=== PATIENT | female | born 1945 | race Caucasian/White ===

== ENCOUNTER 2024-09-29 10:38 | Emergency (ER) | payer MEDICARE ==
[2024-09-29 11:59] LABS: #Basophils Less than 0.03 10x3/uL (0.0-0.2); #Eosinophils 0.05 10x3/uL (0.0-0.5); #Monocytes 0.30 10x3/uL (0.0-1.1); #Neutrophils 5.10 10x3/uL (1.5-8.4); %Basophils 0.3 % (0.0-2.0); %Eosinophils 0.7 % (0.0-6.0); %Lymphocytes 22.2 % (18.0-47.0); %Monocytes 4.2 % (0.0-10.0); %Neutrophils 72.3 % (40.0-75.0); Hematocrit 40.5 % (34.9-44.5); Hemoglobin 13.5 g/dL (12.0-15.5); Mean Corpuscular Hemoglobin 29.4 pg (27.0-33.0); Mean Corpuscular Volume 88.2 fL (81.6-98.3); Platelet Count 197 10x3/uL (150-450); Red Blood Cell (RBC) Count 4.59 10x6/uL (3.90-5.03); White Blood Cell (WBC) Count 7.06 10x3/uL (3.5-10.5)
[2024-09-29 12:23] LABS: ALT (SGPT) 19 U/L (Less than 34); AST (SGOT) 19 U/L (11-34); Albumin 4.3 g/dL (3.1-4.5); Alkaline Phosphatase 46 U/L (40-110); Anion Gap 12 mmol/L (10-20); BUN (Urea Nitrogen) 10 mg/dL (9.8-20.1); Bilirubin, Total 0.6 mg/dL (0.3-1.2); Calc. Creatinine Clearance 0 mL/min (70-130); Calcium 10.2 mg/dL (7.8-10.44); Carbon Dioxide 26 mmol/L (23-31); Chloride 109 mmol/L (98-107); Globulin 2.8 g/dL (2.4-3.5); Glucose 111 mg/dL (83-110); Potassium 4.4 mmol/L (3.5-5.1); Sodium 143 mmol/L (136-145); Troponin I Less than 0.010 ng/mL (< 0.028)
[2024-09-29 12:58] LABS: Glucose, Urine (Dipstick) Normal (Negative); Leukocyte 25 (Negative); Protein, Urine (Dipstick) 15 mg/dl (Neg-Trace); Specific Gravity, Urine 1.010 (1.005-1.030)
[2024-09-29 13:27] LABS: Bacteria/HPF 1+ HPF (None Seen); CAUTI Indications for Culture Pelvic or flank pain; RBC/HPF 0-3 HPF (0-3)
[2024-09-29 13:31] LABS: Urine Culture Reflex No No
== END 2024-09-29 14:30 | disposition home or self-care (01) ==
LOC: CSHERS 10:38
DX: R41.0 Disorientation, unspecified (principal); R53.83 Other fatigue; R53.81 Other malaise
CPT/HCPCS: 71045; 80053; 81001; 84484; 85025; 93005